=== PATIENT | female | born 1975 | race Caucasian/White ===

== ENCOUNTER 2025-01-10 09:51 | Emergency (ER) | payer MEDICARE, MEDICAID, SELFPAY ==
--- NOTE | ~2025-01-10 | XR_ITS ---
CLINICAL HISTORY: abdominal discomfort, chronic constipation 2 view abdomen Comparison: None Findings: Lung bases unremarkable. No pneumoperitoneum or pneumatosis. Moderate diffuse fecal retention throughout the colon. No abnormal calcifications. No acute fractures. Chronic posttraumatic changes involving the right hemipelvis IMPRESSION: Moderate fecal retention. No small bowel obstruction. This document has been electronically signed by: Cezar Jones MD on 01/10/2025 11:14:31
--- NOTE | ~2025-01-10 | XR_ITS ---
EXAMINATION: XR ANKLE, LEFT CLINICAL INFORMATION: ankle swelling/pain after fall COMPARISON: None available. TECHNIQUE: AP, lateral, and mortise views of the left ankle. FINDINGS: No fracture, dislocation, or suspicious bone lesion. Normal bone mineralization. Normal alignment. Mortise intact. Talar dome is normal. Joint spaces are preserved. No significant arthropathy. Soft tissues appear normal. XR/XR ankle LT min 3V IMPRESSION: Normal left ankle. Electronically signed by: Daniel Nash MD 01/10/2025 11:01 AM EDT
--- NOTE | ~2025-01-10 | XR_ITS ---
CLINICAL HISTORY: L foot pain after fall 3 view left foot Comparison: None Findings: Bones intact. No dislocations. No significant arthritic change or erosions. No ankle effusion. No radiopaque foreign body. IMPRESSION: 1. No acute findings. This document has been electronically signed by: Cezar Jones MD on 01/10/2025 11:14:56
[2025-01-10 09:55] VITALS: BP 100/65; PULSE 99; RESP 16; TEMP 35.8; O2SAT 98; BMI 27.1
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
[2025-01-10 10:55] VITALS: BP 109/66; PULSE 86; RESP 16; TEMP 35.8; O2SAT 99
[2025-01-10 11:38] LABS: Appearance Urine Turbid; Color Urine Yellow; Glucose Urine UA Negative (Negative); Leukocyte Esterase Urine Negative (Negative); Nitrite Urine Negative (Negative); Specific Gravity - Urine 1.015 (1.005-1.025); Urine Blood Negative (Negative); Urine Ketones Negative (Negative); Urine Protein Negative (Neg-Trace)
[2025-01-10 11:57] LABS: Alanine Aminotransferase 27 U/L (0-31); Albumin Level 4.3 g/dL (3.5-5.0); Alkaline Phosphatase 91 U/L (39-117); Anion Gap 10 (12-20); Aspartate Amino Transferase 24 U/L (5-31); Bilirubin Total 0.3 mg/dL (0.0-1.0); Blood Urea Nitrogen 17 mg/dL (9-16); Calcium 9.7 mg/dL (8.4-10.2); Carbon Dioxide 28 mmol/L (22-29); Chloride 110 mmol/L (96-108); Creatinine Clr Calc Pharmacy 91.1; Estimated Glomerular Filt Rate > 60; Glucose Random 80 mg/dL (60-115); Potassium 4.2 mmol/L (3.3-5.1); Sodium 144 mmol/L (135-145)
[2025-01-10 12:39] LABS: MANUAL DIFF FLAG NO
[2025-01-10 12:41] LABS: Basophils Absolute Auto 0.1 X10*3/uL (0.0-0.2); Basophils Percent Auto 1.1 % (0-2); Eosinophils Absolute Auto 0.2 X10*3/uL (0.0-0.4); Eosinophils Percent Auto 2.6 % (0-4); Hematocrit 40.3 % (37.0-47.0); Hemoglobin 13.7 g/dl (12.0-16.0); Imm Gran Abs Auto 0.02 X10*3/uL (0.00-0.03); Imm Gran Pct Auto 0.3 % (0.0-0.4); Lymphocytes Absolute Auto 2.5 X10*3/uL (1.2-4.9); Lymphocytes Percent Auto 38.4 % (20-40); Mean Corpuscular Hemoglobin 30.5 pg (27.0-33.0); Mean Corpuscular Volume 89.8 fL (80.0-98.0); Mean Platelet Volume 11.3 fL (9.4-12.3); Monocytes Absolute Auto 0.4 X10*3/uL (0.1-1.2); Monocytes Percent Auto 6.4 % (2-11); Neutrophils Absolute Auto 3.3 x10*3/uL (2.0-8.3); Neutrophils Percent Auto 51.2 % (45-73); Platelet Count 208 X10*3/uL (160-400); Red Blood Count 4.49 X10*6/uL (4.20-5.50); Red Cell Distribution Width 13.3 % (11.0-16.0); White Blood Count 6.4 X10*3/uL (4.8-10.8)
[2025-01-10 13:15] VITALS: BP 113/78; PULSE 83; RESP 20; TEMP 36.6; O2SAT 94
[2025-01-10 13:16] VITALS: BP 113/78; PULSE 83; RESP 20; TEMP 36.6; O2SAT 94
== END 2025-01-10 13:17 | disposition home or self-care (01) ==
PROVIDERS: Physician Assistant Medical; Emergency Provider Emergency Medicine; PCP Internal Medicine
DX: S93.402A Sprain of unspecified ligament of left ankle, initial encounter (principal); S96.912A Strain of unspecified muscle and tendon at ankle and foot level, left foot, initial encounter; W19.XXXA Unspecified fall, initial encounter; K59.00 Constipation, unspecified; G89.4 Chronic pain syndrome; Y93.9 Activity, unspecified; Y92.039 Unspecified place in apartment as the place of occurrence of the external cause; Y99.9 Unspecified external cause status
CPT/HCPCS: 36415; 73610; 73630; 74018; 80053; 81003; 85025; 99283; 99284

== ENCOUNTER → 2025-01-10 10:18 | Outpatient (BNV) | payer MEDICARE, MEDICAID, SELFPAY | PROVIDERS: Emergency Provider Emergency Medicine; PCP Internal Medicine; Visit Provider Radiology Diagnostic Radiology | DX: K56.49 Other impaction of intestine (principal); M25.572 Pain in left ankle and joints of left foot; W19.XXXA Unspecified fall, initial encounter | CPT/HCPCS: 73610; 73630; 74018 ==

== ENCOUNTER 2025-01-28 12:49 | Emergency (ER) | payer MEDICARE, MEDICAID, SELFPAY ==
[2025-01-28] VITALS (9 sets, daily range): BP systolic 108–142; BP diastolic 44–90; PULSE 71–90; RESP 12–18; TEMP 36.2–37.1; O2SAT 97–100; BMI 25.9
--- NOTE | ~2025-01-28 | CT_ITS ---
EXAMINATION: CT HEAD WITHOUT CONTRAST CLINICAL INFORMATION: Seizure. COMPARISON: No prior. TECHNIQUE: Contiguous axial imaging was performed from the skull base to vertex without intravenous administration of contrast. This CT examination was performed using dose optimization techniques as appropriate, variously including the following: *Automated exposure control *Adjustment of mA and/or kV according to patient size (this includes techniques or standardized protocols for targeted exams where dose is matched to indication/reason for exam; i.e. extremities or head) *Use of iterative reconstruction technique FINDINGS: There is no evidence of intracranial hemorrhage or extra-axial fluid collection. There is no mass effect, or edema. No CT evidence of acute territorial infarct. Ventricles, sulci, and cisterns are normal in size and configuration for patient age. No hydrocephalus. No midline shift. Negative hyperdense MCA sign. Negative insular ribbon sign. No significant white matter abnormalities. Globes and orbital contents image normally. No extracranial soft tissue abnormalities. The paranasal sinuses, mastoid air cells, and tympanic cavities are normally aerated. No suspicious bony abnormalities. There are no acute fractures evident. CT/CT head/brain wo IV con IMPRESSION: No acute intracranial abnormality. Electronically signed by: Daniel Nash MD 01/28/2025 02:11 PM EDT
--- NOTE | ~2025-01-28 | XR_ITS ---
EXAMINATION: XR CHEST CLINICAL INFORMATION: seizure COMPARISON: None available. TECHNIQUE: 2 views of the chest were obtained. FINDINGS: The cardiac, hilar, and mediastinal contours are normal. The lungs are somewhat hyperaerated, however clear bilaterally. No consolidations. There is no pneumothorax or pleural effusion. There is no focal osseous or soft tissue abnormality. Spinal fusion hardware present spanning T3-T8. XR/XR chest 2V IMPRESSION: No active pulmonary disease. Electronically signed by: Daniel Nash MD 01/28/2025 02:07 PM EDT
--- NOTE | 2025-01-28 13:07 | ECG_ITS ---
Test Reason : SEIZURE Blood Pressure : */* mmHG Vent. Rate : 72 BPM Atrial Rate : 72 BPM P-R Int : 170 ms QRS Dur : 90 ms QT Int : 390 ms P-R-T Axes : 13 42 91 degrees QTcB Int : 427 ms Normal sinus rhythm Nonspecific ST and T wave abnormality Abnormal ECG No previous ECGs available Referred By: Mara Johnson Electronically Signed By:
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
[2025-01-28] MEDS: diazePAM 10 MG/2 ML CARTRIDGE 5 MG IVPUSH ×2 (13:30→13:42)
[2025-01-28 13:33] LABS: Glucose, Whole Blood 62 mg/dL (60-115)
[2025-01-28 13:37] LABS: INTERNATIONAL NORM RATIO 0.9 (0.9-1.1); Prothrombin Time 10.7 SEC (10.9-12.4)
[2025-01-28 13:40] LABS: Basophils Absolute Auto 0.1 X10*3/uL (0.0-0.2); Basophils Percent Auto 0.8 % (0-2); Eosinophils Absolute Auto 0.2 X10*3/uL (0.0-0.4); Eosinophils Percent Auto 2.4 % (0-4); Hematocrit 43.7 % (37.0-47.0); Hemoglobin 14.5 g/dl (12.0-16.0); Imm Gran Abs Auto 0.02 X10*3/uL (0.00-0.03); Imm Gran Pct Auto 0.3 % (0.0-0.4); Lymphocytes Absolute Auto 2.5 X10*3/uL (1.2-4.9); MANUAL DIFF FLAG SCAN; Mean Corpuscular HGB Conc 33.2 g/dl (31.0-35.0); Mean Corpuscular Hemoglobin 30.1 pg (27.0-33.0); Mean Corpuscular Volume 90.9 fL (80.0-98.0); Monocytes Absolute Auto 0.4 X10*3/uL (0.1-1.2); Monocytes Percent Auto 6.2 % (2-11); Neutrophils Absolute Auto 3.9 x10*3/uL (2.0-8.3); Neutrophils Percent Auto 55.3 % (45-73); PLT CLUMP 1; Red Blood Count 4.81 X10*6/uL (4.20-5.50); Red Cell Distribution Width 13.2 % (11.0-16.0); SCAN SMEAR FLAG 1
[2025-01-28] MEDS: Dextrose 50 % 25 GM/50 ML SYRINGE IVPUSH (13:42)
--- NOTE | 2025-01-28 13:44 | PC.NURSE ---
Arrived via ems, per ems patient had x 1 30 second seizure in route to hospital. Patient seizing upon arrival to ed, provider aware medicated per mar. patient with 20g iv to right wrist and 22 g to left arm. seizure pads placed to bitleral rails, fiance at bedside. Patient alert and talking, stating her head and eyes were starting to hurt- seizure activity noted. Provider aware and medicated per mar with cessation of seizure activity..
[2025-01-28 13:47] LABS: Ammonia 67 umol/L (13-55)
[2025-01-28 13:50] LABS: Lactic Acid 1.6 mmol/L (0.5-2.0)
[2025-01-28] MEDS: levETIRAcetam in NaCl (iso-os) 1,000 MG/100 ML PIGGYBACK 400 MG IV (13:52)
[2025-01-28 13:59] LABS: Alanine Aminotransferase 48 U/L (0-31); Albumin Level 4.6 g/dL (3.5-5.0); Anion Gap 14 (12-20); Aspartate Amino Transferase 21 U/L (5-31); Bilirubin Total 0.3 mg/dL (0.0-1.0); Blood Urea Nitrogen 15 mg/dL (9-16); Calcium 9.7 mg/dL (8.4-10.2); Carbon Dioxide 24 mmol/L (22-29); Chloride 110 mmol/L (96-108); Creatinine Clr Calc Pharmacy 89.7; Estimated Glomerular Filt Rate > 60; Glucose Random 69 mg/dL (60-115); Magnesium 2.4 mg/dL (1.6-2.6); Potassium 4.4 mmol/L (3.3-5.1); Sodium 144 mmol/L (135-145); Total Protein 7.3 g/dL (6.5-8.0)
[2025-01-28 14:04] LABS: Ethanol < 10 mg/dL
[2025-01-28 14:04] LABS: Troponin-I High Sensitivity < 2.7 ng/L (<3.5-17.0)
[2025-01-28 14:15] LABS: Alkaline Phosphatase 138 U/L (39-117)
[2025-01-28 14:19] LABS: HCG Quantitative < 2 mIU/mL
[2025-01-28 14:20] LABS: Mean Platelet Volume 11.6 fL (9.4-12.3); Platelet Count 167 X10*3/uL (160-400); SLIDE REVIEW VERIFIED; White Blood Count 7.1 X10*3/uL (4.8-10.8)
[2025-01-28 14:32] LABS: Influenza A PCR NEGATIVE (Negative); Influenza B PCR NEGATIVE (Negative); Resp Syncy Virus RNA Qual PCR NEGATIVE (Negative); SARS COV2 PCR INHOUSE NEGATIVE (Negative)
[2025-01-28 17:39] LABS: Appearance Urine Clear; Color Urine Yellow; Glucose Urine UA Negative (Negative); Leukocyte Esterase Urine Negative (Negative); Nitrite Urine Negative (Negative); Urine Blood Negative (Negative); Urine Ketones Negative (Negative); Urine Protein Negative (Neg-Trace)
--- NOTE | 2025-01-28 17:40 | PC.NURSE ---
Patient with seizure activity lasting about 45 seconds, MMI TEACHER aware
[2025-01-28 17:47] LABS: Amphetamine Screen Urine Not Detected (Not Detect); Barbiturates, Urine Not Detected (Not Detect); Benzodiazepines Screen Urine Not Detected (Not Detect); Buprenorphine Scr Not Detected (Not Detect); Cannabinoid Screen Urine Not Detected (Not Detect); Cocaine Screen Urine Not Detected (Not Detect); Fentanyl, urine Not Detected (Not Detect); Methadone Screen, Urine Not Detected (Not Detect); Opiate Screen Urine Not Detected (Not Detect); Oxycodone Screen Urine Not Detected (Not Detect); Phencyclidine Screen Urine Not Detected (Not Detect)
--- NOTE | 2025-01-28 18:22 | PC.NURSE ---
Called vimal to bring in meds from home , no further seizure activity observed at this time
--- NOTE | 2025-01-28 19:20 | PC.NURSE ---
upon entering room pt was eating dinner but appeared to be slightly drowsy, head bobbing side to side, fiance states this presentation leads to seizures. pt then appeared to gaze to right side, eyes reactive to light and blinking, moves extremities appropriately. ethan li called to bedside to confirm behavior. vitals stable. pt became axox4 after 2-3 minutes and resumed eating dinner asking when she can leave. call pierce within reach.
--- NOTE | 2025-01-28 21:35 | PC.NURSE ---
pt educated on plan of care for 3rd time, then by Dot LAM as well, pt verbalizes understanding plan of care at this time.
--- NOTE | 2025-01-29 01:48 | PC.NURSE ---
Addendum entered by Krystin Siddiqui 01/29/25 02:52: Dot LAM did bedside u/s as pt states she has a ruptured bladder, then confirmed she had. per PA bladder look ok, pt states she had not peed since 01/27/25. pt had straight cath done earlier per previous RN however UO amount not noted. pt states she goes days without peeing at times? pt stated to pct she is not ambulatory however fiance had previously stated she walks with a walker. Dot RN asked pt if she is bed bound pt then stated no i use a walker to walk with assistance. pt then got up with walker 2+ assist to commode, able to urinate 600mL. PA aware. Original Note: pt reports inability to urinate, bladder scan as documented. Dot LAM made aware. also made aware pt is requesting pain meds. states will be at bedside to speak with patient.
--- NOTE | 2025-01-29 01:48 | MHC.EDTECH ---
This pct assumed care of Patient at 2300,Patient awake watching television .vitals taken ,Patient was moved into a hospital bed for Comfort ,Patient said she has not void since yesterday ,bladder scan done ,Patient had 687 ml urine in bladder ,RN Krystin is aware .yellow sock given and all safety measure in Place ,Patient belongings list done ,Patient was offer snacks and fluids Had chicken salad sandwich ,darrius johnson and water for snack .Pillow Place underneath Patient heels .
--- NOTE | 2025-01-29 02:57 | MHC.EDTECH ---
Patient was a max asst of 2 Person and a walker to bedside Commode ,Patient void 600 ml urine ,Savannah care given ,Patient was assisted back into bed ,and was Position on her left side with Pillow behind her back ,Call pierce with Patient reach .
--- NOTE | 2025-01-29 03:19 | PC.NURSE ---
med rec done per patient's knowledge. pa aware.
--- NOTE | 2025-01-29 04:06 | PC.NURSE ---
hob lowered and pt repositioned to L. side per request.
[2025-01-29] MEDS: Atorvastatin Calcium 80 MG TABLET PO (04:46)
[2025-01-29] MEDS: Baclofen 10 MG TABLET PO ×3 (04:46→17:43)
[2025-01-29] MEDS: traZODone HCL 50 MG TABLET PO (04:46)
[2025-01-29] MEDS: HYDROmorphone HCl 2 MG TABLET PO ×2 (04:46→11:20)
--- NOTE | 2025-01-29 08:13 | PHA.MEDREC ---
Addendum entered by Jb Maier 01/29/25 08:25: reviewed Original Note: Pharmacy Consult ? Medication Reconciliation Pharmacy reviewed the medication reconciliation done by nursing. I noticed Focalin 30mg, Pregabalin 300mg and Docusate 100mg were not added onto the list but recently filled in claims. I spoke with patient about those 3 medications and the patient confirmed she is taking those medications. Patient also added she is taking Milk of Magnesia and Miralax once a day. Patient also confirmed she is taking her Hydromorphone 2mg tab only at bedtime and not q6h. I updated the med rec according to what the patient had confirmed with me.
[2025-01-29] MEDS: Escitalopram Oxalate 20 MG TABLET PO (09:42)
[2025-01-29] MEDS: Topiramate 100 MG TABLET PO (09:43)
[2025-01-29] MEDS: Aspirin 81 MG TAB.CHEW PO (09:43)
[2025-01-29] MEDS: Loratadine 10 MG TABLET PO (09:43)
[2025-01-29 10:55] VITALS: BP 100/62; PULSE 81; RESP 16; O2SAT 99
--- NOTE | 2025-01-29 12:08 | PM.PSYCN ---
History of Present Illness Date of Service: 01/29/2025 Chief Complaint: WEAKNESS,TINGLING BOTH HANDS/FEET PER EMS Discussed with referring provider: Yes Sources of Information: patient interviewed, chart reviewed and crisis/core team assessment reviewed HPI Narrative: Ms. Patiño is a 49 year-old woman with hx of TBI, memory problems subsequently after this. She was brought via EMS after found unresponsive by her mother. She had seizure-like activity. It appears per prior [facility] records that she has hx of psychogenic seizures. She continued to have seizure like activity. Pt reported problems with memory and needing reminders to take medications as prescribed. She is prescribed a number of controlled substances including ativan, hydromorphone and focalin (dexmethylphenidate, which wouldn't be detected on regular utox). Her utox was negative for benzodiazepine, and oxycodone. Pt reports she is forgetful with medications and her fiance assists with this. Psychiatry consulted due to concerns about her ability to care for herself. Also, concerns in terms of medication management as pt reports taking medications but utox negative. Pertinent labs completed in the ED include CBC mostly unremarkable (no leukocytosis, no anemia); CMP without electrolyte imbalances (slightly elevated Cl 110), BUN 15, Cr 0.74, creatinine clearance 89.7, slight elevation in ALT 48, AST 21. Noted elevated ammonia 67, yesterday, unclear what may be causing this as she is not on medication that would increase ammonia. Recommend repeat today. Head CT did not show any acute findings. Pt seen in the ED. She presents as mildly somnolent. She reports feeling tired and trying to sleep a little bit. She reports she came yesterday after her mother called 911. She reports she does not remember much as to what was going on. She reports she was told she has psychological seizures. She reports she feels off before this incident happens. She denies SI/HI. She was seen by care team, no acute psychiatric symptoms. No signs of psychosis. Pt does report that she is forgetful and has been ever since she had TBI back in 2019. She reports she often does not remember if she takes medications or not. She reports she knows she is at [facility] She was unsure about the month initially saying November but quickly corrected herself and reported it was January. She knew the year 2024. Collateral information gathered from her fiance Andrew ([phone]) who reports they have known each other since they were 9 years old. They did not become a couple until 5-6 years ago. He reports she has been very forgetful since TBI, unable to remember appointment or take medications. He reports he tries to help her but also reports he is not knowledgeable as to what the medications are for. She reports pain medications she takes as needed and that many times she denies any pain so she will not take it. He is open to have VNA coming at home. Pt was also seen by OT completed MOCA on 01/29/2025 scored 17/30 with impairments in executive/visuospatial function (2/5), attention, language fluency (0/1), recall (2/5), orientation (4/6 with impairments in month and date- note that pt also told OT November). ACL which looks at functional cognition score 4.4 (although I do suspect she needs more supervision and is more impaired than this score reflects.) Diagnostics Vital Signs (24Hr): Vital Signs - 24 hr 01/28/25 12:57 01/28/25 13:31 01/28/25 14:56 Temperature 98.7 F 98.2 F Pulse Rate 76 83 72 Respiratory Rate 18 18 14 Blood Pressure 129/86 108/69 Pulse Oximetry 100 98 99 Oxygen Delivery Method Non-Rebreather Mask Room Air Room Air 01/28/25 16:00 01/28/25 17:43 01/28/25 19:20 Temperature 98.1 F 98.1 F Pulse Rate 76 71 81 Respiratory Rate 12 14 16 Blood Pressure 110/63 110/67 125/61 Pulse Oximetry 99 100 99 Oxygen Delivery Method Room Air Room Air Room Air 01/28/25 22:05 01/28/25 23:55 01/29/25 10:55 Temperature 97.1 F 97.7 F Pulse Rate 90 76 81 Respiratory Rate 15 16 16 Blood Pressure 110/44 L 110/69 100/62 Pulse Oximetry 99 97 99 Oxygen Delivery Method Room Air Room Air Room Air BMI result Body Mass Index 25.9 Labs 01/28/25 13:22 01/28/25 13:22 Labs: Laboratory Results - last 48 hr 01/28/25 01/28/25 01/28/25 13:21 13:22 13:23 WBC 7.1 RBC 4.81 Hgb 14.5 Hct 43.7 MCV 90.9 MCH 30.1 MCHC 33.2 RDW 13.2 Plt Count 167 MPV 11.6 Immature Gran % (Auto) 0.3 Neut % (Auto) 55.3 Lymph % (Auto) 35.0 [place] % (Auto) 6.2 Eos % (Auto) 2.4 Baso % (Auto) 0.8 Lymph # (Auto) 2.5 [place] # (Auto) 0.4 Eos # (Auto) 0.2 Baso # (Auto) 0.1 Abs Immat Gran (auto) 0.02 Absolute Neuts (auto) 3.9 Absolute Nucleated RBC 0.000 Nucleated RBC % (auto) 0.0 Smear Tech's Comments VERIFIED PT 10.7 L INR 0.9 Sodium 144 Potassium 4.4 Chloride 110 H Carbon Dioxide 24 Anion Gap 14 BUN 15 Creatinine 0.74 Estim Creat Clear Calc 89.7 Estimated GFR > 60 POC Glucose 62 Random Glucose 69 Lactic Acid 1.6 Calcium 9.7 Magnesium 2.4 Total Bilirubin 0.3 AST 21 ALT 48 H Alkaline Phosphatase 138 H Ammonia 67 H Troponin I High Sens < 2.7 Total Protein 7.3 Albumin 4.6 TSH 2.70 Beta HCG, Quant < 2 Urine Color Urine Appearance Urine pH Ur Specific [place] Urine Protein Urine Glucose (UA) Urine Ketones Urine Blood Urine Nitrite Ur Leukocyte Esterase Urine Opiates Screen Ur Buprenorphine Scrn Ur Oxycodone Screen Urine Methadone Screen Urine Fentanyl Screen Ur Barbiturates Screen Ur Phencyclidine Scrn Ur Amphetamines Screen U Benzodiazepines Scrn Urine Cocaine Screen U Marijuana (THC) Screen Ethyl Alcohol < 10 Influenza Type A (PCR) Influenza Type B (PCR) RSV RNA Qual (PCR) SARS-CoV-2 RNA (RT-PCR) 01/28/25 01/28/25 13:51 17:20 WBC RBC Hgb Hct MCV MCH MCHC RDW Plt Count MPV Immature Gran % (Auto) Neut % (Auto) Lymph % (Auto) [place] % (Auto) Eos % (Auto) Baso % (Auto) Lymph # (Auto) [place] # (Auto) Eos # (Auto) Baso # (Auto) Abs Immat Gran (auto) Absolute Neuts (auto) Absolute Nucleated RBC Nucleated RBC % (auto) Smear Tech's Comments PT INR Sodium Potassium Chloride Carbon Dioxide Anion Gap BUN Creatinine Estim Creat Clear Calc Estimated GFR POC Glucose Random Glucose Lactic Acid Calcium Magnesium Total Bilirubin AST ALT Alkaline Phosphatase Ammonia Troponin I High Sens Total Protein Albumin TSH Beta HCG, Quant Urine Color Yellow Urine Appearance Clear Urine pH 7.0 Ur Specific [place] 1.010 Urine Protein Negative Urine Glucose (UA) Negative Urine Ketones Negative Urine Blood Negative Urine Nitrite Negative Ur Leukocyte Esterase Negative Urine Opiates Screen Not Detected Ur Buprenorphine Scrn Not Detected Ur Oxycodone Screen Not Detected Urine Methadone Screen Not Detected Urine Fentanyl Screen Not Detected Ur Barbiturates Screen Not Detected Ur Phencyclidine Scrn Not Detected Ur Amphetamines Screen Not Detected U Benzodiazepines Scrn Not Detected Urine Cocaine Screen Not Detected U Marijuana (THC) Screen Not Detected Ethyl Alcohol Influenza Type A (PCR) NEGATIVE Influenza Type B (PCR) NEGATIVE RSV RNA Qual (PCR) NEGATIVE SARS-CoV-2 RNA (RT-PCR) NEGATIVE Imaging Radiology Impressions: ITS Impressions Chest X-Ray 01/28/25 13:07 IMPRESSION: No active pulmonary disease. Electronically signed by: Daniel Nash MD 01/28/2025 02:07 PM EDT RP Head CT 01/28/25 13:07 IMPRESSION: No acute intracranial abnormality. Electronically signed by: Daniel Nash MD 01/28/2025 02:11 PM EDT RP Mental Status Exam Mental Status Exam Narrative: Appearance: wearing hospital gown, fair hygiene, in NAD Behavior: cooperative, slightly somnolent Psychomotor: no agitation or retardation noted Speech: clear, normal rate/rhythm/volume, spontaneous TP: mostly linear, some gaps in memory TC: feeling tired, hoping to go home Mood: tired Affect: congruent SI: none HI: none VH/AH: none Delusions: none Insight/judgment: impaired x 2 Memory/cog: alert, intermittent impairment in orientation to month, she is oriented to place, year and situation. MOCA socred , ACL 4.4 Medications Medications Current Medications Aspirin (Aspirin 81 Mg Tab.Chew) 81 mg PO DAILY [facility] Last Admin: 01/29/25 09:43 Dose: 81 mg Atorvastatin Calcium (Atorvastatin Calcium 80 Mg Tablet) 80 mg PO BEDTIME [facility] Last Admin: 01/29/25 04:46 Dose: 80 mg Baclofen (Baclofen 10 Mg Tablet) 10 mg PO QID [facility] Last Admin: 01/29/25 09:43 Dose: Not Given Dextrose (Dextrose 50 % 25 Gm/50 Ml Syringe) 25 gm IVPUSH Q15M PRN PRN Reason: per Hypoglycemia Standing Ord. Last Admin: 01/28/25 13:42 Dose: 25 gm Escitalopram Oxalate (Escitalopram Oxalate 20 Mg Tablet) 20 mg PO DAILY [facility] Last Admin: 01/29/25 09:42 Dose: 20 mg Hydromorphone HCl (Hydromorphone Hcl 2 Mg Tablet) 2 mg PO Q6H PRN PRN Reason: Pain, Severe (Pain Scale 7-10) Last Admin: 01/29/25 11:20 Dose: 2 mg Loratadine (Loratadine 10 Mg Tablet) 10 mg PO DAILY [facility] Last Admin: 01/29/25 09:43 Dose: 10 mg Lorazepam (Lorazepam 0.5 Mg Tablet) 0.5 mg PO TID PRN PRN Reason: Anxiety Topiramate (Topiramate 100 Mg Tablet) 100 mg PO BID [facility] Last Admin: 01/29/25 09:43 Dose: 100 mg Trazodone HCl (Trazodone Hcl 50 Mg Tablet) 50 mg PO BEDTIME PRN PRN Reason: Sleep Last Admin: 01/29/25 04:46 Dose: 50 mg Allergies Allergies Allergy/AdvReac Type Severity Reaction Status Date / Time acetaminophen AdvReac Nausea Verified 01/10/25 09:59 [From Tylenol-Codeine] codeine AdvReac Nausea Verified 01/10/25 09:59 [From Tylenol-Codeine] latex AdvReac Unknown Verified 01/28/25 13:10 Assessment & Plan Assessment & Plan (1) Cognitive deficit as late effect of traumatic brain injury: Status: Acute Code(s): R41.89 - Other symptoms and signs involving cognitive functions and awareness; S06.9XAS - Unspecified intracranial injury with loss of consciousness status unknown, sequela Plan Ms. Patiño is a 49 year-old woman with hx of TBI, cognitive and memory impairments secondary to TBI. She does present with significant memory/cognitive impairments affecting higher functions of the brain such as executive function/visuospatial skills, language fluency, orientation and ability to retain new information. She is able to comprehend as you speak with her about information regarding medical condition but may not be able to retain more detailed information over time. In this sense, HCP should be informed of medical treatments and interventions. In terms of safety in the community, it appears that Ms. Patiño has extensive supports from her fiance and her mother. She also has HEARING THERAPIST hours through [employer]. Pt and fiance are open to have VNA services. No evidence that pt with current supports (formal and informal) is unsafe. Furthermore, just because utox was negative there is no other evidence that control substances are being diverted. There is also no objective evidence of neglect or abuse. Pt is impaired and does required significant support in the community, but it seems she is safe to return back home. PLAN 1. No need for inpt psych admission 2. Pt has significant memory/cog impairments s/s to TBI, needs HCP to be aware of medical information as pt may not be able to retain information over time. 3. No evidence that pt is unsafe at home nor with current informal and formal support. Would caution team to assume control substances are being diverted solemnly on fact that utox was negative. Left VM to his psychiatrist, no call back 4. Note ammonia was slightly elevated, unclear cause not on medications known to cause elevation, may want to recheck if going up or not. Total time managing care of this patient today ___45_ minutes.
[2025-01-29 12:31] VITALS: BP 107/65; PULSE 86; RESP 16; TEMP 36.6; O2SAT 98
[2025-01-29 17:06] VITALS: BP 108/62; PULSE 86; RESP 14; TEMP 36.3; O2SAT 98
[2025-01-29 17:16] LABS: Ammonia 54 umol/L (13-55)
== END 2025-01-29 19:33 | disposition home or self-care (01) ==
PROVIDERS: Registered Nurse Emergency; Social Worker; Emergency Provider Emergency Medicine Emergency Medical Services; PCP Internal Medicine
DX: G40.409 Other generalized epilepsy and epileptic syndromes, not intractable, without status epilepticus (principal); R53.1 Weakness; E11.9 Type 2 diabetes mellitus without complications; E78.5 Hyperlipidemia, unspecified; R79.1 Abnormal coagulation profile; Z03.818 Encounter for observation for suspected exposure to other biological agents ruled out; Z79.82 Long term (current) use of aspirin; Z79.899 Other long term (current) drug therapy; Z79.02 Long term (current) use of antithrombotics/antiplatelets
CPT/HCPCS: 0241U; 36415; 70450; 71046; 80053; 80307; 81003; 82140; 82947; 83605; 83735; 84443; 84484; 84702; 85025; 85610; 87040; 93005; 96365; 96366; 96375; 97165; 99285; J1953; J3360; S9485

== ENCOUNTER → 2025-01-28 13:07 | Outpatient (BNV) | payer MEDICARE, MEDICAID, SELFPAY | PROVIDERS: Emergency Provider Emergency Medicine Emergency Medical Services; PCP Internal Medicine; Visit Provider Radiology Diagnostic Radiology | DX: R20.2 Paresthesia of skin (principal); R53.1 Weakness | CPT/HCPCS: 70450; 71046 ==

== ENCOUNTER → 2025-01-28 14:09 | Outpatient (BNV) | payer MEDICARE, MEDICAID, SELFPAY | PROVIDERS: Emergency Provider Emergency Medicine Emergency Medical Services; PCP Internal Medicine; Visit Provider Social Worker | DX: R41.89 Other symptoms and signs involving cognitive functions and awareness (principal); S06.9XAS Unspecified intracranial injury with loss of consciousness status unknown, sequela | CPT/HCPCS: 99285 ==